=== PATIENT | male | born 1950 | race Caucasian/White ===

== ENCOUNTER → 2021-01-03 | Outpatient (CLI) | payer OTHER ==
[~2021-01-03] MED LIST: ASPIRIN 325MG325 MG PO; ASPIRIN EC81 MG PO; ATORVASTATIN CA20 MG PO; IMDUR ER TAB 3030 MG PO; IRBESARTAN150 MG PO; LIPITOR TAB 1010 MG PO; NORVASC2.5 MG PO; PLAVIX 75 MG TA75 MG PO; VITAMIN D250000 UNIT PO
== END ==
LOC: EXRD 10:45
DX: M81.0 Age-related osteoporosis without current pathological fracture (principal)
CPT/HCPCS: 77080